=== PATIENT | male | born 1960 | race Caucasian/White ===

== ENCOUNTER 2017-11-13 12:23 | Emergency (ER) | payer OTHER ==
[2017-11-13 13:25] VITALS: BP 120/77
--- NOTE | 2017-11-13 14:24 | UC ---
Maicol Vasquez Thomas, scribed for [facility] Angel MD on 11/13/17 at 1400 . Throat Pain/Nasal George HPI - HPI Summary HPI Summary: In Room Note: The patient is a 57 year old male presenting to Urgent Care complaining of nasal congestion, nasal drainage, sore throat and sinus discomfort that has been present for a month. Patient additionally complains of some eye drainage. He suspects irritating his eye tonight. He is fatigued. Patient denies CP, SOB, and dysuria. In the past, the patient took allergy shots but the patient stopped them due to insurance reasons. He got a new dog about a year ago. MD Note: VSS, afebrile, visit history noncontributory, no allergies. History of GERD. Nurses Note: pt c/o nasal congestion. pt states he wakes up in the morning with nasal congestion with mucous production. pt states his eyes seem to be affected now. - History of Current Complaint Chief Complaint: UCRespiratory Stated Complaint: CONGESTED Time Seen by Provider: 11/13/17 13:51 Hx Obtained From: Patient Onset/Duration: Lasting Weeks - onset one month ago, Still Present Cough: None Associated Signs & Symptoms: Positive: Sinus Discomfort, Nasal Discharge, Other - Eye drainage, fatigue. Negative: Fever Related History: Smoking - former - Allergies/Home Medications Allergies/Adverse Reactions: Allergies Allergy/AdvReac Type Severity Reaction Status Date / Time No Known Allergies Allergy Verified 05/07/14 09:04 Home Medications: Home Medications Lansoprazole [Prevacid] 30 mg PO 11/13/17 [History] PMH/Surg Hx/FS Hx/Imm Hx Previously Healthy: No - GERD, Osteoathritis. NEGATIVE: DM - Surgical History Surgical History: Yes Surgery Procedure, Year, and Place: left shoulder - 2003 - bone spur and arthritis. HERNIA AGE 7,. VASECTOMY AND REVERSAL. - Family History Known Family History: Positive: Diabetes - Social History Occupation: Retired Alcohol Use: Occasionally Alcohol Amount: 2 PER WEEK Substance Use Type: None Smoking Status (MU): Former Smoker Have You Smoked in the Last Year: No Review of Systems Constitutional: Fatigue Eyes: Drainage ENT: Nasal Discharge, Other - Sinus discomfort Is Patient Immunocompromised?: No All Other Systems Reviewed And Are Negative: Yes - Comments Additional Review of Systems Comments: A 12 point review of systems was completed and significantly positive for: nasal congestion, nasal drainage, sore throat, sinus discomfort, and fatigue. The remainder of the review was negative except as stated above in the HPI. Physical Exam Triage Information Reviewed: Yes Vital Signs: Initial Vital Signs Temp 97.4 F 11/13/17 13:21 Pulse 86 11/13/17 13:21 Resp 18 11/13/17 13:21 BP 120/77 11/13/17 13:21 Pulse Ox 99 11/13/17 13:21 Vital Signs Reviewed: Yes - Additional Comments Appearance: The patient is well-appearing, is in no pain distress, and is well- nourished. Eyes: On the right eye medially there is a chronic redness due to a previously removed foreign body. ENT: The hearing is grossly normal, the pharynx is normal, and the TMs are normal. There is no muffled or hoarse voice. The skin over the right nasal septum looks more erythematous than the left. Neck: The neck is supple and nontender. Respiratory: The chest is nontender. The lungs are clear, there are normal breath sounds, and there is no respiratory distress. Cardiovascular: Heart is regular rate and rhythm. There is no murmur. Abdomen: The abdomen is soft and nontender. There is no organomegaly. Bowel sounds: present Musculoskeletal: Strength is intact. The patient moves all extremities. Neurological: The patient is alert. Psychological: The patient displays age appropriate behavior Skin: Negative for rashes. Throat Pain/Nasal Course/Dx - Course Course Of Treatment: Normal BP reading and no follow-up instructions required. Medications have been included in the original chart and reviewed. - Differential Dx/Diagnosis Differential Diagnosis/HQI/PQRI: Sinusitis, Other - Allergic rhinitis Provider Diagnoses: Allergic rhinitis Discharge - Discharge Plan Condition: Stable Disposition: HOME Prescriptions: Triamcinolone NASAL SPRAY* [Nasacort Aq Nasal [place]*] 1 puff NASAL BID #1 puff MDD 2 per nostril daily Patient Education Materials: Triamcinolone (Into the nose), Allergic Rhinitis ( ED) Referrals: Dennis VELÁSQUEZ,Bright Montemayor [Primary Care Provider] - Additional Instructions: Thank you for helping us improve patient care by filling out the My Point Survey. WE DISCUSSED: 1. Your symptoms sound like an allergy in your nose. 2. Clean your nostrils with a Neti pot after you are around the dog or dust. 3. Use a nasal spray as directed. 2 SPRAYS PER NOSTRIL EACH DAY FOR 7 DAYS; YOU GET BETTER, REDUCE TO ONE SPRAY PER NOSTRIL EACH DAY FOR ANOTHER 2 WEEKS OR WHEN YOU NOTICE NOSE IS RUNNING. 4. Re check with your direct care supervisor. PLEASE SEEK CARE AT THE EMERGENCY DEPARTMENT IF SYMPTOMS WORSEN OR IF NEW SYMPTOMS DEVELOP. FOLLOW UP WITH YOUR PRIMARY CARE PHYSICIAN. The documentation as recorded by the Maicol mckenna Thomas accurately reflects the service I personally performed and the decisions made by , Jose Angel Merrill MD.
== END 2017-11-13 14:30 | disposition home or self-care (01) ==
LOC: UCEAST 12:23
DX: J30.9 Allergic rhinitis, unspecified (principal); Z87.891 Personal history of nicotine dependence; K21.9 Gastro-esophageal reflux disease without esophagitis
CPT/HCPCS: 99212; G0463

== ENCOUNTER → 2019-09-11 05:54 | Day surgery (SDC) | payer OTHER ==
[~2019-09-11 05:54] MED LIST: Buffered Lidocaine 1% SYRIN* 1 ML/SYRINGE INTRADERM ONE; Bupivacaine 0.5%* 50 ML MDV VIAL ONE; Dexamethasone IV* 4 MG/ML 1 ML (4 MG) IV SLOW PU ONE; Dexamethasone IV* 4 MG/ML 1 ML (4 MG) ONE; DiMENhydriNATE IV* 50 MG/ML VIAL IV PUSH PRN; Famotidine IV* 10 MG/ML 2 ML (20 mg) IV ONE; Famotidine IV* 10 MG/ML 2 ML (20 mg) ONE; Gelfoam 12-7 ADSORBABL SPONGE* 1 EA SPONGE ONE; Gelfoam Sponge SIZE 100* SPONGE ONE; HYDROcodone/ACETAMIN 5-325 MG* 1 TAB PO PRN; Ketorolac INJ* 30 MG/ML 1 ML VIAL IV PRN; Ketorolac INJ* 30 MG/ML 1 ML VIAL ONE; Lactated Ringers 1000 ML Bag* 1,000 ML IV SCH; Lidocaine 2% PF * 5 ML VIAL ONE; Midazolam* 1 MG/ML 2 ML VIAL (2 MG) ONE; Naloxone* 0.4 MG/ML 1 ML VIAL IV PRN; Ondansetron INJ* 2 MG/ML VIAL ONE; Propofol* 10 MG/ML 20 ML BTL ONE; ROPIVACAINE 5 MG/ML 30 ML BTL (0.5%) ONE; ceFAZolin 2 GM PREMIX in ORs 2 GM/50 ML BAG ONE; fentaNYL* 50 MCG/ML 2 ML VIAL (100 MCG VIAL) IV PRN; fentaNYL* 50 MCG/ML 2 ML VIAL (100 MCG VIAL) ONE; oxyCODONE/Acetamin 5/325 MG* TAB ONE; oxyCODONE/Acetamin 5/325 MG* TAB PO PRN
[2019-09-11 11:06] VITALS: BP 107/69
--- NOTE | 2019-09-11 21:51 | OP ---
DATE OF OPERATION: 09/11/19 - [facility] DATE OF : 58 SURGEON: Bright Ozuna MD. GROUP BURNER MACHINE: Antwan Melendez PA-C. PRE-OP DIAGNOSIS: Left tibiotalar osteoarthritis. POST-OP DIAGNOSIS: Left tibiotalar osteoarthritis. OPERATIVE PROCEDURE: Left tibiotalar arthrodesis. DESCRIPTION OF PROCEDURE: The patient was taken to the operating room where a lateral longitudinal incision was made over the fibula down towards the sinus tarsi. We raised a full-thickness flap off the anterior aspect of the tibiotalar joint with a Bueno retractor used to hold and protect the soft tissues. We dissected around the distal fibula to release the ligaments and a lamina concrete gun operator was used to open the joint. We used a curette and a 5-mm power bur to prepare the joint for arthrodesis. In the distal fibula, we opened up the lateral cortex and harvested cancellous bone with a large curette. Gelfoam was placed into the defect. This cancellous bone was then placed along the tibiotalar joint, which was then pinned under compression using 6.5 mm partially threaded cancellous screws of the Synthes kit over washers. Excellent compression and alignment was obtained and verified with the C-arm. We then irrigated thoroughly closing with deep Vicryl sutures, 2-0 Monocryl for the subcu and mary for the skin and a compression dressing plaster splint applied. [id number]/CPS #: [id number] MTDD
== END | disposition home or self-care (01) ==
LOC: OR 05:54
PROVIDERS: ATTEND Orthopaedic Surgery
DX: M19.072 Primary osteoarthritis, left ankle and foot (principal); J45.909 Unspecified asthma, uncomplicated; E78.00 Pure hypercholesterolemia, unspecified; K21.9 Gastro-esophageal reflux disease without esophagitis; N40.0 Benign prostatic hyperplasia without lower urinary tract symptoms; G89.18 Other acute postprocedural pain
CPT/HCPCS: 76000; A9270-GY; C1713; C1776; J0690; J1100; J1885; J2250; J2405; J2704; J2795; J3010; J3490

== ENCOUNTER 2022-09-08 05:51 | Observation (INO) ==
[2022-09-08] MEDS ORDERED: Lactated Ringers 1000 ml BAG 1,000 ML IV SCH ×2 (06:00→10:00)
[2022-09-08] MEDS ORDERED: Buffered Lidocaine 1% SYRIN 1 ml INTRADERM ONE (06:00)
[2022-09-08] MEDS ORDERED: ceFAZolin 2 GM PREMIX 2 GM/50 ML BAG ONE (06:15)
[2022-09-08] MEDS ORDERED: HYDROmorphone 1 MG/1 ML SYRINGE IV PRN (07:00)
[2022-09-08] MEDS ORDERED: Prochlorperazine 5 mg/ml 2 ml VIAL (10 mg) IV PRN (07:00)
[2022-09-08] MEDS ORDERED: Naloxone 0.4 mg VIAL 0.4 mg/ml 1 ml VIAL IV PRN (07:00)
[2022-09-08] MEDS ORDERED: Lidocaine 2% PF 5 ML VIAL ONE (07:18)
[2022-09-08] MEDS ORDERED: Phenylephrine IV 10 MG/ML 1 ml VIAL ONE (07:18)
[2022-09-08] MEDS ORDERED: Midazolam 2 mg/2 ml VIAL 1 mg/ml 2 ml VIAL (2 mg) ONE (07:26)
[2022-09-08] MEDS ORDERED: fentaNYL 250 mcg/5 ml 50 MCG/ML 5 ml VIAL (250 MCG) ONE (07:27)
[2022-09-08] MEDS ORDERED: Dexamethasone IV 4 MG/ML VIAL 1 ml VIAL ONE (08:21)
[2022-09-08] MEDS ORDERED: Ondansetron 4 mg VIAL 2 MG/ML 2 ml VIAL ONE (08:21)
[2022-09-08] MEDS ORDERED: Propofol 10 MG/ML 20 ML BTL ONE (09:03)
[2022-09-08] MEDS ORDERED: Magnesium Hydroxide LIQ 30 ML UDC PO PRN (09:29)
[2022-09-08] MEDS ORDERED: Ondansetron 4 mg VIAL 2 MG/ML 2 ml VIAL IV PRN (09:29)
[2022-09-08] MEDS ORDERED: Lactulose 30 ml UDC PO PRN (09:29)
[2022-09-08] MEDS ORDERED: Morphine 2 MG/ML SYRINGE IV PRN (09:29)
[2022-09-08] MEDS ORDERED: Ondansetron ODT 4 mg TAB 4 MG TAB PO PRN (09:29)
[2022-09-08 11:04] VITALS: BP 120/77
[2022-09-08] MEDS ORDERED: ceFAZolin 1 GM ADVAN 1 GM in NS 0.9% 50 ML 50 ML IVPB SCH (16:00)
[2022-09-08] MEDS ORDERED: Magnesium Hydroxide LIQ 30 ML UDC PO SCH (21:00)
[2022-09-09] MEDS ORDERED: Vitamin THERAPEUTIC TAB PO SCH (09:00)
== END 2022-09-08 19:10 | disposition home or self-care (01) ==
LOC: OR 05:51 → SSU 05:51
PROVIDERS: ADMIT Orthopaedic Surgery Adult Reconstructive Orthopaedic Surgery; ATTEND Orthopaedic Surgery Adult Reconstructive Orthopaedic Surgery